=== PATIENT | male | born 1980 | race Caucasian/White ===

== ENCOUNTER → 2018-10-04 | Outpatient (CLI) | payer OTHER ==
--- NOTE | 2018-10-04 12:42 | REP ---
Clinical: Chronic right shoulder pain. Technique: Internal rotation, external rotation, and Y view. Findings: No acute fracture or dislocation. The acromioclavicular and glenohumeral joints are intact. No periarticular calcifications or degenerative changes are appreciated. Sub acromial space is normal. Surrounding soft tissues are unremarkable. Impression: Normal age-appropriate right shoulder radiographs. Electronically Signed by Quincy Alejandre MD 10/04/2018 12:33 P
== END ==
LOC: M RAD 11:56
PROVIDERS: ATTEND Surgery
DX: M25.511 Pain in right shoulder (principal)

== ENCOUNTER → 2019-03-20 | Outpatient (CLI) | payer OTHER ==
--- NOTE | 2019-03-20 11:35 | REP ---
Lumbar spine series: Five views. History: Low back pain. Findings: Five views of the lumbar spine demonstrate preserved vertebral body heights and normal alignment. There is a minimal levoconvex curve. Spina bifida occulta is noted at the L5 level along with sacralization of its transverse processes. There is degenerative disc narrowing at L3-4, L4-5, and L5-S1, indicating degenerative disc disease. There is no evidence of spondylolysis or spondylolisthesis. Sacrum and SI joints are intact. Impression: Transitional lumbosacral junction. Spina bifida occulta at L5. Degenerative disc narrowing L3-4, L4-5 and L5-S1. Electronically Signed by Senthil Hayward MD 03/20/2019 12:17 P
== END ==
LOC: M RAD 08:34
PROVIDERS: ATTEND Surgery
DX: M51.36 Other intervertebral disc degeneration, lumbar region (principal); Q76.0 Spina bifida occulta

== ENCOUNTER → 2020-02-01 | Outpatient (CLI) | payer OTHER ==
--- NOTE | 2020-02-01 10:24 | REP ---
INDICATION: LOW BACK PAIN COMPARISON: 03/20/2019 TECHNIQUE: AP, lateral, bilateral oblique coned-down views of the lumbar spine. FINDINGS: Again noted is transitional vertebra, and spina bifida occulta at L5. Minimal endplate sclerosis and minimal disc space narrowing at L4-5 and L5-S1 again noted and unchanged. Remainder of examination is normal.. IMPRESSION: 1. Stable congenital findings and stable mild degenerative changes. <Electronically signed by Quincy Alejandre > 02/01/20 1029
== END ==
LOC: M RAD 08:45
PROVIDERS: ATTEND Surgery
DX: Q76.0 Spina bifida occulta (principal); M51.36 Other intervertebral disc degeneration, lumbar region; M51.37 Other intervertebral disc degeneration, lumbosacral region; M54.5 Low back pain